=== PATIENT | female | born 1995 | race African-American/Black ===

== ENCOUNTER 2019-07-04 19:31 | Emergency (ER) | payer OTHER ==
[2019-07-04] MEDS ORDERED: ASPIRIN 81 MG TABLET, CHEWABLE PO ONE (20:03)
--- NOTE | 2019-07-04 20:03 | ER Document Report ---
ED Medical Screen (RME) - General Chief Complaint: Chest Pain Stated Complaint: CHEST PAIN Time Seen by Provider: 07/04/19 20:01 Mode of Arrival: Ambulatory Information source: Patient Notes: 23-year-old female presented to ED for complaint of left-sided chest pain running down the left arm. He states it started about 2 hours ago. She states she has to take shallow breaths or it hurts when she takes a deep breath. She denies any fevers shortness of breath. Patient is alert oriented respirations regular and unlabored speaking in full sentences walks with a even steady gait. - Related Data Allergies/Adverse Reactions: latex Allergy (Verified 07/04/19 20:00)
--- NOTE | 2019-07-04 20:42 | RADIOLOGY REPORT (SQ) ---
XR CHEST 2 VIEWS EXAM DATE: 07/04/2019 8:03 PM CDT HISTORY: Chest pain. COMPARISON: None. FINDINGS: The heart size is within normal limits. No consolidation, pleural effusion, or pneumothorax is seen. The bony thorax is intact. IMPRESSION: No evidence of acute cardiopulmonary disease.
[2019-07-04 21:02] LABS: ABSOLUTE BASOPHILS # (AUTO) 0.1 10^3/uL (0.0-0.2); ABSOLUTE EOSINOPHILS # (AUTO) 0.2 10^3/uL (0.0-0.6); ABSOLUTE LYMPHOCYTES (AUTO) 1.3 10^3/uL (0.5-4.7); ABSOLUTE MONOCYTES (AUTO) 0.5 10^3/uL (0.1-1.4); BASOPHILS % (AUTO) 0.9 % (0-2); EOSINOPHILS % (AUTO) 2.7 % (0-6); HEMATOCRIT 39.8 % (36.0-47.0); HEMOGLOBIN 12.8 g/dL (12.0-15.5); LYMPHOCYTES % (AUTO) 22.1 % (13-45); MEAN CORPUSCULAR HEMOGLOBIN 28.2 pg (27.0-33.4); MEAN CORPUSCULAR HGB CONC 32.1 g/dL (32.0-36.0); MEAN CORPUSCULAR VOLUME 88 fl (80-97); MONOCYTES % (AUTO) 7.7 % (3-13); PLATELET COUNT 288 10^3/uL (150-450); RED BLOOD COUNT 4.53 10^6/uL (3.72-5.28); RED CELL DISTRIBUTION WIDTH 12.4 % (11.5-14.0); SEGMENTED NEUTROPHILS % (AUTO) 66.6 % (42-78); TOTAL CELLS COUNTED % (AUTO) 100 %
[2019-07-04 21:21] LABS: ALBUMIN 4.5 g/dL (3.5-5.0); ALKALINE PHOSPHATASE 78 U/L (38-126); ANION GAP 9 (5-19); ASPARTATE AMINO TRANSFERASE 22 U/L (14-36); BILIRUBIN,DIRECT 0.1 mg/dL (0.0-0.4); BILIRUBIN,TOTAL 0.5 mg/dL (0.2-1.3); BLOOD UREA NITROGEN 20 mg/dL (7-20); CALCIUM 9.3 mg/dL (8.4-10.2); CARBON DIOXIDE 29 mmol/L (22-30); CHLORIDE 102 mmol/L (98-107); CREATINE KINASE 110 U/L (30-135); GLUCOSE 97 mg/dL (75-110); POTASSIUM 3.9 mmol/L (3.6-5.0); TOTAL PROTEIN 7.8 g/dL (6.3-8.2)
[2019-07-04 21:43] LABS: CREATINE KINASE MB 0.24 ng/mL (<4.55)
[2019-07-04 21:44] LABS: TROPONIN I < 0.012 ng/mL
[2019-07-04 21:46] LABS: INTERNATIONAL RATION (INR) 1.08; PARTIAL THROMBOPLASTIN TIME 27.6 SEC (23.5-35.8)
--- NOTE | 2019-07-04 23:05 | EKG REPORT ---
SEVERITY:- OTHERWISE NORMAL ECG - SINUS RHYTHM ST ELEV, PROBABLE NORMAL EARLY REPOL PATTERN : Confirmed by: Taisha Adair MD 04-Jul-2019 23:04:45
--- NOTE | 2019-07-04 23:59 | ER Document Report ---
ED General - General Chief Complaint: Chest Pain Stated Complaint: CHEST PAIN Time Seen by Provider: 07/04/19 20:01 Primary Care Provider: KATHERINE GRIFFITHS NP [Primary Care Provider] - Follow up as needed Mode of Arrival: Ambulatory Notes: Very pleasant 23-year-old female presents the emergency department with chief complaint of left-sided chest pain that radiated down her left arm starting at 6:15 PM tonight. Patient states that the pain was persistent but worse with inhalation and with laughing, was sharp, and there was no associated diaphoresis, nausea, or dyspnea on exertion. Patient denies any positive family history, patient is not a smoker or drug user. No recent illness or fevers, no vomiting or diarrhea, no abdominal pain. No other complaints - Related Data Allergies/Adverse Reactions: latex Allergy (Verified 07/04/19 20:00) Past Medical History - General Information source: Patient - Social History Smoking Status: Never Smoker Frequency of alcohol use: None Drug Abuse: None Family History: None Patient has suicidal ideation: No Patient has homicidal ideation: No Review of Systems - Review of Systems Constitutional: See HPI EENT: No symptoms reported Cardiovascular: See HPI Respiratory: See HPI Gastrointestinal: See HPI Genitourinary: No symptoms reported Female Genitourinary: No symptoms reported Musculoskeletal: No symptoms reported Skin: No symptoms reported Hematologic/Lymphatic: No symptoms reported Neurological/Psychological: No symptoms reported Physical Exam - Vital signs Vitals: Temp Pulse Resp BP Pulse Ox 98.4 F 69 16 125/72 99 07/04/19 20:01 07/04/19 20:01 07/04/19 20:01 07/04/19 20:01 07/04/19 20:01 - Notes Notes: PHYSICAL EXAMINATION: Reviewed vital signs and charting by RN GENERAL: Alert, interacts well. No acute distress. HEAD: Normocephalic, atraumatic. EYES: Pupils equal and round. Extraocular movements intact. ENT: Oral mucosa moist, tongue midline. NECK: Full range of motion. Trachea midline. LUNGS: Clear to auscultation bilaterally, no wheezes, rales, or rhonchi. No respiratory distress. HEART: Regular rate and rhythm. No murmur ABDOMEN: soft, non-tender. No distention. Bowel sounds present EXTREMITIES: Moves all 4 extremities spontaneously. No edema, No cyanosis. PSYCH: Normal affect, normal mood. SKIN: Warm, dry, normal turgor. No rashes or lesions noted. Course - Re-evaluation Re-evalutation: 07/04/19 23:57 Presentation of chest pain in an otherwise well appearing patient. Low clinical suspicion for ACS given clinical history, exam, EKG without ST elevations or depressions, and negative initial troponin. HEART score less than or equal to 3. PE also seems unlikely given clinical history, absence of tachycardia or dyspnea. Patient is PERC criteria negative. CXR without evidence of pneumothorax or pneumonia. No widened mediastinum. Aortic dissection also seems unlikely given history, symmetric pulses, CXR, and vitals. 07/05/19 01:21 Delta troponin was negative essentially ruling out a cardiac cause. Patient informed of the results, given strict return precautions, and discharge instructions. She is stable for discharge. - Vital Signs Vital signs: Temp Pulse Resp BP Pulse Ox 97.5 F 76 20 105/61 100 07/05/19 01:02 07/05/19 01:02 07/05/19 01:02 07/05/19 01:02 07/05/19 01:02 - Laboratory Result Diagrams: 07/04/19 20:40 07/04/19 20:40 Discharge - Discharge Clinical Impression: Chest pain Qualifiers: Chest pain type: unspecified Qualified Code(s): R07.9 - Chest pain, unspecified Condition: Good Disposition: HOME, SELF-CARE Additional Instructions: You were seen today for chest pain. The exact cause of your pain is unclear. However, based on your cardiac enzyme testing, chest x-ray, and EKG it does not appear that it is from an immediately life-threatening cause at this time. Although your testing here is normal is critical that you follow-up with your primary care physician for continued evaluation of this chest pain and possible stress testing. I recommended you see your physician within the next 24-48 hours to be evaluated for consideration of a stress test. Please return to e mergency department immediately if you have worsening of your chest pain, shortness of breath, vomiting, become unable to exert yourself due to pain or difficulty breathing, you pass out, or have any pain that radiates into your arms, jaw, or back. Please also return if you have any additional symptoms that are concerning to you. Referrals: GRIFFITHS,KATHERINE, [facility] [Primary Care Provider] - Follow up as needed
[2019-07-05 01:05] VITALS: BP 105/61
== END 2019-07-05 02:09 | disposition home or self-care (01) ==
LOC: ER 19:31
DX: R07.9 Chest pain, unspecified (principal); Z91.040 Latex allergy status
CPT/HCPCS: 36415; 71046; 80053; 82550; 82553; 84443; 84484; 84703; 85025; 85610; 85730; 93005; 93010; 99285